=== PATIENT | female | born 1980 | race Hispanic/Latino ===

== ENCOUNTER 2017-03-28 16:11 | Observation (INO) | payer MEDICAID ==
[2017-03-28 16:24] VITALS: BP 141/70; PULSE 107; RESP 20; TEMP 97.8; O2SAT 98
--- NOTE | 2017-03-28 16:33 | ED PDOC ---
HPI: Psych/Substance Abuse Time Seen by Provider: 03/28/17 16:25 Chief Complaint (Nursing): Alcohol Ingestion History Per: Other (Brought by HPD after pt admitted to ETOH ingestion prior to picking up her children at school. Denies drugs or opioids. denies SI/HI) History/Exam Limitations: intoxication Onset/Duration Of Symptoms: Unknown Current Symptoms Are (Timing): Still Present Modifying Factor(s): Alcohol Severity: Moderate Associated Symptoms: denies: Suicidal Thoughts Involuntary Hold By: Local Law Enforcement Past Medical History Vital Signs: Last Vital Signs Temp 97.8 F 03/28/17 16:17 Pulse 107 H 03/28/17 16:17 Resp 20 03/28/17 16:17 BP 141/70 03/28/17 16:17 Pulse Ox 98 03/28/17 16:17 - Medical History PMH: No Chronic Diseases - Family History Family History: States: Unknown Family Hx - Allergies Allergies/Adverse Reactions: Allergies Allergy/AdvReac Type Severity Reaction Status Date / Time No Known Allergies Allergy Verified 03/28/17 16:16 Review of Systems Cardiovascular: Negative for: Chest Pain Respiratory: Negative for: Shortness of Breath Gastrointestinal: Negative for: Abdominal Pain Psych: Negative for: Suicidal ideation Physical Exam - Physical Exam Appears: Positive for: Non-toxic, No Acute Distress Skin: Positive for: Normal Color, Warm, DRY Eye Exam: Positive for: EOMI, PERRL Cardiovascular/Chest: Positive for: Regular Rate, Rhythm Respiratory: Positive for: CNT, Normal Breath Sounds Gastrointestinal/Abdominal: Positive for: Soft. Negative for: Tenderness Back: Positive for: Normal Inspection Extremity: Positive for: Normal ROM Neurologic/Psych: Negative for: Motor/Sensory Deficits (Awake answering questions, slurred speech) - Laboratory Results Result Diagrams: 03/28/17 16:42 - ECG O2 Sat by Pulse Oximetry: 98 Disposition - Clinical Impression Clinical Impression: Alcohol abuse - Patient ED Disposition Is Patient to be Admitted: Transfer of Care - Disposition Disposition: Transfer of Care Disposition Time: 16:56 Condition: FAIR Patient Signed Over To: Lucia Liomn
[2017-03-28 16:52] LABS: BASO # 0.1 K/uL (0.0-0.2); BASO % 0.8 % (0.0-2.0); EOS # 0.2 K/uL (0.0-0.7); EOS % 2.2 % (0.0-4.0); HEMATOCRIT 36.2 % (34.0-47.0); LYMPH # 2.6 K/uL (1.0-4.3); LYMPH % 35.7 % (20.0-40.0); MEAN CELL VOLUME 90.4 fl (81.0-99.0); MEAN CORPUSCULAR HEMOGLOBIN 29.7 pg (27.0-31.0); MEAN CORPUSCULAR HGB CONC 32.8 g/dL (33.0-37.0); MEAN PLATELET VOLUME 6.9 fl (7.2-11.7); MONO # 0.4 K/uL (0.0-0.8); MONO % 5.7 % (0.0-10.0); NEUT # 4.1 K/uL (1.8-7.0); NEUT % 55.6 % (50.0-75.0); NRBC % 0.1 % (0.0-0.0); WHITE BLOOD COUNT 7.3 K/uL (4.8-10.8)
--- NOTE | 2017-03-28 17:07 | ED PDOC ---
- Laboratory Results Result Diagrams: 03/28/17 16:42 03/28/17 16:42 - ECG O2 Sat by Pulse Oximetry: 98 Medical Decision Making Medical Decision Makin:00 Patient is signed out to me by Haider Laughlin MD pending psychiatric and medical evaluation, clinical sobriety, labs, and urine. Crisis will evaluate. 17:43 Patient's alcohol is .333. Patient will be placed in ED observation pending clinical sobriety. See ED obs note for further updates. Scribe Attestation: Documented by Maddie Mckay, acting as a scribe for Lucia Limon MD. Provider Scribe Attestation: All medical record entries made by the Scribe were at my direction and personally dictated by me. I have reviewed the chart and agree that the record accurately reflects my personal performance of the history, physical exam, medical decision making, and the department course for this patient. I have also personally directed, reviewed, and agree with the discharge instructions and disposition. Disposition - Clinical Impression Clinical Impression: Alcohol abuse with intoxication, Adjustment disorder, Alcohol-induced mood disorder - POA Present On Arrival: None - Disposition Disposition: Transfer of Care Disposition Time: 19:00 Condition: STABLE Patient Signed Over To: Ludwin Cruz Handoff Comments: pending sobriety, crisis eval ED OBSERVATION Date of observation admission: 03/28/17 Time of observation admission: 17:43 - Observation admission statement Patient is being placed in observation because:: Need for continuous monitoring. - Goals of Observation Goals of observation are:: Pending clinical sobriety. - Progress Note Progress Note: 03/28/17 19:00 Patient is signed out to Ludwin Cruz MD pending clinical sobriety, medical and psychiatric clearance, reevaluation, and final disposition.
[2017-03-28 17:10] LABS: ALB/GLOB RATIO 1.4 (1.0-2.1); ALKALINE PHOSPHATASE 67 U/L (38-126); ALT/SGPT 24 U/L (9-52); AST/SGOT 28 U/L (14-36); BILIRUBIN,TOTAL 0.2 mg/dl (0.2-1.3); BLOOD UREA NITROGEN 10 mg/dl (7-17); CALCIUM 8.1 mg/dL (8.4-10.2); CARBON DIOXIDE 24 mmol/L (22-30); CHLORIDE 108 mmol/L (98-107); GFR AFRICAN-AMERICAN > 60; GLUCOSE,RANDOM 92 mg/dL (65-105); POTASSIUM 3.8 MMOL/L (3.6-5.0); SODIUM 147 mmol/l (132-148); TOTAL PROTEIN 7.9 G/DL (6.3-8.2)
[2017-03-28 17:20] LABS: ALCOHOL SERUM 333 mg/dl (0-10)
--- NOTE | 2017-03-28 19:21 | ED PDOC ---
- Laboratory Results Result Diagrams: 03/28/17 16:42 03/28/17 16:42 - ECG O2 Sat by Pulse Oximetry: 98 Medical Decision Making Medical Decision Makin:00 Patient is signed out to me by Lucia Limon MD pending clinical sobriety, medical and psychiatric clearance, reevaluation, and final disposition. 2304: Patient evaluated by crisis and found to be stable for d/c with police. Dx: alcohol intoxication, alcohol induced mood disorder, adjustment disorder stable Scribe Attestation: Documented by Maddie Mckay, acting as a scribe for Ludwin Cruz MD. Provider Scribe Attestation: All medical record entries made by the Scribe were at my direction and personally dictated by me. I have reviewed the chart and agree that the record accurately reflects my personal performance of the history, physical exam, medical decision making, and the department course for this patient. I have also personally directed, reviewed, and agree with the discharge instructions and disposition. Disposition - Clinical Impression Clinical Impression: Alcohol abuse with intoxication, Adjustment disorder, Alcohol-induced mood disorder - POA Present On Arrival: None - Disposition Disposition: Discharged/Transfer to Law Enforcement Disposition Time: 17:40 Condition: STABLE
[2017-03-28 20:52] LABS: RBC URINE 1 /hpf (0-3); URINE BILIRUBIN NEGATIVE (NEGATIVE); URINE BLOOD NEGATIVE (NEGATIVE); URINE COLOR YELLOW (YELLOW); URINE GLUCOSE (UA) NEG (Normal); URINE KETONE NEGATIVE (NEGATIVE); URINE LEUKOCYTE ESTERASE NEG Leu/uL (Negative); URINE PROTEIN NEGATIVE (NEGATIVE); URINE UROBILINOGEN 0.2-1.0 mg/dL (0.2-1.0); WBC URINE 1 /hpf (0-5)
== END 2017-03-28 23:00 | disposition home or self-care (01) ==
LOC: H.ER 16:11 → H.EROBSV 17:43
PROVIDERS: ADMIT Emergency Medicine; ATTEND Emergency Medicine
DX: F10.129 Alcohol abuse with intoxication, unspecified (principal); F10.14 Alcohol abuse with alcohol-induced mood disorder; Y90.8 Blood alcohol level of 240 mg/100 ml or more; F43.20 Adjustment disorder, unspecified

== ENCOUNTER 2017-03-29 11:43 | Inpatient (IN) | payer MEDICAID ==
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
--- NOTE | 2017-03-29 14:05 | RAD ---
HISTORY: psych screen COMPARISON: No prior. TECHNIQUE: Chest PA and lateral FINDINGS: LUNGS: No active pulmonary disease. PLEURA: No significant pleural effusion identified. No pneumothorax apparent. CARDIOVASCULAR: Normal. OSSEOUS STRUCTURES: No significant abnormalities. VISUALIZED UPPER ABDOMEN: Normal. OTHER FINDINGS: None. IMPRESSION: No active disease.
[2017-03-29] MEDS ORDERED: Magnesium Hydroxide Susp 30 ml UD PO PRN (15:26)
[2017-03-29] MEDS ORDERED: DiphenhydrAMINE 50 mg/ml Inj IM PRN (15:26)
[2017-03-29] MEDS ORDERED: Alum-Mag Hydrox-Simethicone Susp (30 mL) PO PRN (15:26)
--- NOTE | 2017-03-29 17:57 | CP.PCM.CON ---
History of Present Illness - History of Present Illness History of Present Illness: 36 yo female with no significant PMH admitted to psyche unit because she told her father she wanted slit her wrist and overdose with Benadryl. Review of Systems - Review of Systems All systems: reviewed and no additional remarkable complaints except (aside from those mentioned above, 12 point system review were negative by me) Past Patient History - Infectious Disease Hx of Infectious Diseases: None - Tetanus Immunizations Tetanus Immunization: Unknown - Past Medical History & Family History Past Medical History?: No Past Family History: Reviewed and not pertinent - Past Social History Smoking Status: Former Smoker Chewing Tobacco Use: No Cigar Use: No Alcohol: > 2 Drinks/Day Drugs: Denies Home Situation {Lives}: With Family - CARDIAC Hx Cardiac Disorders: No Hx Hypertension: No - PULMONARY Hx Tuberculosis: No - NEUROLOGICAL HX Cerebrovascular Accident: No Hx Seizures: No - HEMATOLOGICAL/ONCOLOGICAL Hx Cancer: No Hx Human Immunodeficiency Virus (HIV): No - GENITOURINARY/GYNECOLOGICAL Hx Sexually Transmitted Disorders: No - PSYCHIATRIC Hx Anxiety: Yes - SURGICAL HISTORY Hx Section: Yes (x1) Meds Allergies/Adverse Reactions: Allergies Allergy/AdvReac Type Severity Reaction Status Date / Time No Known Allergies Allergy Verified 03/28/17 16:16 - Medications Medications: Current Medications Acetaminophen (Tylenol 325mg Tab) 650 mg PO Q4 PRN PRN Reason: Pain, moderate (4-7) Al Hydrox/Mg Hydrox/Simethicone (Maalox Plus 30 Ml) 30 ml PO Q4 PRN PRN Reason: Dyspepsia Diphenhydramine HCl (Benadryl) 50 mg IM Q6 PRN PRN Reason: Extrapyramidal S/S Unable PO Diphenhydramine HCl (Benadryl) 50 mg PO Q6 PRN PRN Reason: Extrapyramidal Symptoms Folic Acid (Folic Acid) 1 mg PO DAILY NOA Haloperidol (Haldol) 5 mg PO Q4 PRN PRN Reason: Agitation Haloperidol Lactate (Haldol) 5 mg IM Q4 PRN PRN Reason: Agitation, Unable to Take PO Lorazepam (Ativan) 2 mg IM Q4 PRN PRN Reason: Anxiety/Agitation,Unable PO Lorazepam (Ativan) 2 mg PO Q4 PRN PRN Reason: Anxiety/Agitation Lorazepam (Ativan) 1 mg PO TID [facility] Last Admin: 03/29/17 17:34 Dose: 1 mg Magnesium Hydroxide (Milk Of Magnesia) 30 ml PO HS PRN PRN Reason: Constipation Multivitamins/Minerals (Therapeutic-M Tab) 1 tab PO DAILY NAO Thiamine HCl (Vitamin B1 Tab) 100 mg PO DAILY NOA Physical Exam - Constitutional Appears: No Acute Distress - Head Exam Head Exam: ATRAUMATIC - Eye Exam Eye Exam: absent: Scleral icterus - ENT Exam ENT Exam: Mucous Membranes Moist - Neck Exam Neck exam: Negative for: Meningismus - Respiratory Exam Respiratory Exam: absent: Rhonchi, Wheezes, Respiratory Distress - Cardiovascular Exam Cardiovascular Exam: REGULAR RHYTHM, +S1, +S2 - GI/Abdominal Exam GI & Abdominal Exam: Soft. absent: Tenderness - Rectal Exam Rectal Exam: Deferred - Extremities Exam Extremities exam: Negative for: pedal edema - Neurological Exam Neurological exam: Alert, Oriented x3 - Psychiatric Exam Psychiatric exam: Normal Affect - Skin Skin Exam: Dry, Intact Results - Vital Signs Recent Vital Signs: Last Vital Signs Temp 98 F 03/29/17 11:47 Pulse 94 H 03/29/17 13:15 Resp 16 03/29/17 13:15 BP 118/86 03/29/17 13:15 Pulse Ox 99 03/29/17 13:15 - Labs Labs: Laboratory Results - last 24 hr 03/29/17 13:20 Urine Opiates Screen Negative Urine Methadone Screen Negative Ur Barbiturates Screen Negative Ur Phencyclidine Scrn Negative Ur Amphetamines Screen Negative U Benzodiazepines Scrn Negative U Oth Cocaine Metabols Negative U Cannabinoids Screen Negative Assessment & Plan (1) Suicidal ideation Status: Acute Comment: psyche is managing
[2017-03-30 07:57] LABS: T4 8.01 ug/dl (5.5-11.0)
[2017-03-30] MEDS: Multivitamin With Minerals Tab PO SCH ×2 (09:19→09:20)
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
--- NOTE | 2017-03-30 19:26 | CARD ---
APPROVED REPORT EKG Measurement Heart [id number] <Conclusion> Normal sinus rhythm Normal ECG
[2017-03-31] MEDS: Multivitamin With Minerals Tab PO SCH (09:30)
[2017-04-01] MEDS: Multivitamin With Minerals Tab PO SCH (09:13)
[2017-04-01] MEDS: Hydrophor Oint TOP SCH ×3 (10:01→17:52)
--- NOTE | 2017-04-01 10:12 | PCM.PYCHPN ---
Psychiatric Progress Note - Psychiatric Progress Note Patient seen today, length of contact: late note for [id number] Patient Chief Complaint: feeling depressed sad, recent relapse. some changes in sleep appetite fair. denies current s/s withdrawal. Problems Identified/Issues Discussed: alteration in mood alteration in coping substance use:etoh Medical Problems: per chart Diagnostic Results: per psychiatry per medicine per nursing per neonatal social worker DSM 5 Symptoms Update: mood, coping , sadness, anhedonia Medication Change: No Medical Record Reviewed: Yes Mental Status Examination - Cognitive Function Orientation: Person, Place, Situation, Time Attention: WNL Concentration: WNL Association: WNL Fund of Knowledge: [facility] Decription of patient's judgement and insights: impaired - Mood Mood: Depressed, Anxious - Affect Affect: Constricted, Depressed - Formal Thought Process Formal Thought Process: No Impairment - Homicidal Ideation Homicidal Ideation: No Goal/Treatment Plan - Goal/Treatment Plan Need for Continued Stay: Severe depression anxiety, Discharge may exacerbated symptoms Progress Toward Problem(s) and Goals/Treatment Plan: inpt admission adjust meds per status vital signs per protocol and per status visual observation per protocol and per status discharge planning progress Estimated Date of D/C: 04/04/17 - Smoking Cessation Smoking Cessation Initiated: No Reason for not providing: deferred
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
[2017-04-02] MEDS: Multivitamin With Minerals Tab PO SCH (08:44)
[2017-04-02] MEDS: Hydrophor Oint TOP SCH ×3 (09:56→16:57)
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
[2017-04-03] MEDS: Multivitamin With Minerals Tab PO SCH (09:45)
[2017-04-03] MEDS: Hydrophor Oint TOP SCH ×3 (09:45→18:09)
--- NOTE | 2017-04-03 13:02 | PCM.PYCHPN ---
Psychiatric Progress Note - Psychiatric Progress Note Patient seen today, length of contact: discussed with team Patient Chief Complaint: i am so anxious Problems Identified/Issues Discussed: pt less irritable today. she is stating she is having a lot of anxiety. she reports seroquel is helping her sleep. pt somewhat intrusive and with poor interpersonal boundaries with male peer who left today. Medication Change: No Medical Record Reviewed: Yes Mental Status Examination - Cognitive Function Orientation: Person, Place, Situation, Time Memory: Intact Attention: WNL Concentration: WNL Association: WN Fund of Knowledge: [facility] Decription of patient's judgement and insights: fair - Mood Mood: Depressed, Anxious - Affect Affect: Constricted, Depressed - Speech Speech: Loud - Formal Thought Process Formal Thought Process: No Impairment Psychotic Thoughts and Behaviors: denies a/v hallucinations - Suicidal Ideation Suicidal Ideation: No - Homicidal Ideation Homicidal Ideation: No Goal/Treatment Plan - Goal/Treatment Plan Need for Continued Stay: Severe depression anxiety, Discharge may exacerbated symptoms Progress Toward Problem(s) and Goals/Treatment Plan: alcohol dependence major depression moderate, recurrent anxiety will continue with zoloft and seroquel lower ativan tomorrow and monitor for withdrawal working with dcpp to help refer pt to alcohol treatment Estimated Date of D/C: 04/06/17
[2017-04-04] MEDS: Hydrophor Oint TOP SCH ×3 (09:00→17:38)
[2017-04-04] MEDS: Multivitamin With Minerals Tab PO SCH (09:36)
--- NOTE | 2017-04-04 09:41 | PCM.PYCHPN ---
Psychiatric Progress Note - Psychiatric Progress Note Patient seen today, length of contact: discussed with team Patient Chief Complaint: i need something for anxiety Problems Identified/Issues Discussed: pt with epidodes of irritability. she mostly is c/o anxiety. she indicates she understands she has to come off benzodiazapine meds to get rehab treatment when with this creative writer, but later she complains loudly in the milieu that the team is not giving her what she needs. she is picking and choosing places she wants to be referred for inpatient treatment. she reports she is still sleeping well with the seroquel. she is agreeing to start vistaril for her anxiety Medication Change: Yes (lower ativan, start vistaril) Medical Record Reviewed: Yes Mental Status Examination - Cognitive Function Orientation: Person, Place, Situation, Time Memory: Intact Attention: WNL Concentration: WNL Association: WNL Fund of Knowledge: [facility] Decription of patient's judgement and insights: fair - Mood Mood: Depressed, Anxious - Affect Affect: Constricted, Depressed - Speech Speech: Loud - Formal Thought Process Formal Thought Process: No Impairment Psychotic Thoughts and Behaviors: denies a/v hallucinations - Suicidal Ideation Suicidal Ideation: No - Homicidal Ideation Homicidal Ideation: No Goal/Treatment Plan - Goal/Treatment Plan Need for Continued Stay: Severe depression anxiety, Discharge may exacerbated symptoms Progress Toward Problem(s) and Goals/Treatment Plan: alcohol dependence major depression moderate, recurrent anxiety will continue with zoloft and seroquel have lowered ativan vistril prn for anxiety working with dcpp to help refer pt to alcohol treatment Estimated Date of D/C: 04/06/17
[2017-04-05] MEDS: Hydrophor Oint TOP SCH ×3 (08:14→17:41)
[2017-04-05] MEDS: Multivitamin With Minerals Tab PO SCH (08:14)
--- NOTE | 2017-04-05 14:19 | PCM.PYCHPN ---
Psychiatric Progress Note - Psychiatric Progress Note Patient seen today, length of contact: discussed with team Patient Chief Complaint: i didn't sleep Problems Identified/Issues Discussed: pt still c./o feeling anxious. pt intrusive with peers. she reports poor sleep last night. no withdrawal symptoms. allowing referral to inpt rehabs. Medication Change: No ( dc ativan after last dose today) Medical Record Reviewed: Yes Mental Status Examination - Cognitive Function Orientation: Person, Place, Situation, Time Memory: Intact Attention: WNL Concentration: WNL Association: WNL Fund of Knowledge: [facility] Decription of patient's judgement and insights: fair - Mood Mood: Depressed, Anxious - Affect Affect: Constricted, Depressed - Speech Speech: Loud - Formal Thought Process Formal Thought Process: No Impairment Psychotic Thoughts and Behaviors: denies a/v hallucinations - Suicidal Ideation Suicidal Ideation: No - Homicidal Ideation Homicidal Ideation: No Goal/Treatment Plan - Goal/Treatment Plan Need for Continued Stay: Severe depression anxiety, Discharge may exacerbated symptoms Progress Toward Problem(s) and Goals/Treatment Plan: alcohol dependence major depression moderate, recurrent anxiety will continue with zoloft and seroquel- increase seroquel to 100mg hs for mood and anxiety dc standing ativan after todays last dose vistril prn for anxiety working with dcpp to help refer pt to alcohol treatment Estimated Date of D/C: 04/06/17
[2017-04-06] MEDS: Multivitamin With Minerals Tab PO SCH (09:04)
[2017-04-06] MEDS: Hydrophor Oint TOP SCH ×3 (09:04→17:21)
--- NOTE | 2017-04-06 12:42 | PCM.PYCHPN ---
Psychiatric Progress Note - Psychiatric Progress Note Patient seen today, length of contact: in treatment team Patient Chief Complaint: you aren't helping me...i've never seen a doctor like you Problems Identified/Issues Discussed: pt c/o having a panic attack today. per rn, came to nursing stating asking for ativan and seeking immediate help. pt becomes loud and angry when asked to wait by RN. pt followed this insurance underwriter sales down the ramos as he walked to sw office. this author tried to appear unphased by the c/o panic attack and not feed into the anxiety, reminding pt of short duration of panic and that ativan was not an appropriate treatment. pt loudly expressing anger at this doctor, who had discussed many times with pt need to stop ativan and how it is not compatable with pt going to treatment for her alcohol dependence. pt was also started on zoloft, neurontin, seroquel and prn vistaril. regarding the appropriateness of still receiving ativan: pt states "going to rehab isn't going to happen for a few weeks anyway" prior to team, pt observed in day area encouraging other patient to complain about her treatment here. in treatment team, when confronted with these behaviors pt accuses this insurance underwriter sales of lying. pt also states she never asked to take extra ativan or prn ativan. pt then yelled at this insurance underwriter sales stating that "you don't even care that i haven't seen my kids in 8 days...you don't even want to help me." in treatment team, pt c/o that social services specialist is not helping her, that she and her family are the ones finding the rehab referrals. this insurance underwriter sales reiterated that this hospital is a voluntary program and did offer to discharge the pt home if she did not feel she was being helped by this program or if the program was making her worse. reiterated that the pt's treatment did not necessarily mean that the pt would get medications on demand, nor would she be prescribed inappropriate or unsafe medications. pt has been attending groups and was encouraged to try and use coping skills. in treatment team, pt was expressing thankfulness to the art therapist who "i' ve seen more than all of you..and she actually tries to help me" pt demanding to speak to "the highest authority' and make "a lot of noise" Medication Change: No ( pt may benefit from more seroquel, but unable to discuss with pt) Medical Record Reviewed: Yes Mental Status Examination - Cognitive Function Orientation: Person, Place, Situation, Time Memory: Intact Attention: WNL Concentration: WNL Association: WNL Fund of Knowledge: WNL Decription of patient's judgement and insights: fair insight - Mood Mood: Depressed, Anxious, Other (angry) - Affect Affect: Constricted, Depressed - Speech Speech: Loud - Formal Thought Process Formal Thought Process: No Impairment Psychotic Thoughts and Behaviors: denies a/v hallucinations - Suicidal Ideation Suicidal Ideation: No - Homicidal Ideation Homicidal Ideation: No Goal/Treatment Plan - Goal/Treatment Plan Need for Continued Stay: Severe depression anxiety, Discharge may exacerbated symptoms Progress Toward Problem(s) and Goals/Treatment Plan: alcohol dependence major depression moderate, recurrent anxiety will continue with zoloft, neurotin and seroquel- have increased seroquel to 100mg hs for mood and anxiety- may benefit from a daytime dose. all po ativan discontinued vistril prn for anxiety dcpp involved- pt states "i haven't met with anyone and don't know what's going on with my case" Estimated Date of D/C: 04/10/17
[2017-04-07] MEDS: Multivitamin With Minerals Tab PO SCH (09:07)
[2017-04-07] MEDS: Hydrophor Oint TOP SCH ×3 (09:12→17:41)
--- NOTE | 2017-04-07 12:17 | PCM.PYCHPN ---
Psychiatric Progress Note - Psychiatric Progress Note Patient seen today, length of contact: Patient evaluated, case discussed with staff, chart reviewed Patient Chief Complaint: "I put myself here" Problems Identified/Issues Discussed: Patient discussed her children and how she is very stressed not being with them. She states that she made "one stupid mistake". She said numerous times that she has great coping skills, but just needs a time out right now. She is agreeable to inpatient rehab because she wants to be with her children again. She had various complaints about being on an inpatient unit. She continues to report feeling very anxious. We discussed increasing the Seroquel and she was agreeable. Medication Change: Yes (Increase Seroquel to 150 mg PO HS) Medical Record Reviewed: Yes Mental Status Examination - Cognitive Function Orientation: Person, Place, Situation, Time Memory: Intact Attention: WNL Concentration: WNL Association: WNL Fund of Knowledge: [facility] Decription of patient's judgement and insights: Fair I/J - Mood Mood: Depressed, Anxious, Other (Angry) - Affect Affect: Other (Irritable/ Labile) - Speech Speech: Loud - Formal Thought Process Formal Thought Process: No Impairment Psychotic Thoughts and Behaviors: NO AH/VH/paranoia - Suicidal Ideation Suicidal Ideation: No - Homicidal Ideation Homicidal Ideation: No Goal/Treatment Plan - Goal/Treatment Plan Need for Continued Stay: Severe depression anxiety, Discharge may exacerbated symptoms Progress Toward Problem(s) and Goals/Treatment Plan: Alcohol dependence Major depression moderate, recurrent Anxiety Continue with zoloft, neurotin Increase seroquel to 150 mg PO HS PO ativan discontinued Vistril prn for anxiety Dcpp case opened Individual and group therapy Estimated Date of D/C: 04/11/17
[2017-04-07] MEDS ORDERED: POLYETHYLENE GLYCOL 3350 17 GM/Dose PACKET PO STA (20:46)
[2017-04-08] MEDS: Multivitamin With Minerals Tab PO SCH (09:10)
[2017-04-08] MEDS: Hydrophor Oint TOP SCH ×3 (09:13→18:52)
--- NOTE | 2017-04-08 13:53 | PCM.PYCHPN ---
Psychiatric Progress Note - Psychiatric Progress Note Patient seen today, length of contact: Patient evaluated, case discussed with staff, chart reviewed Patient Chief Complaint: "I'm facing my problems" Problems Identified/Issues Discussed: Patient discussed her social stressors. She continues to minimize her alcohol abuse. She reports her mood as anxious. She is concerned that the dosage of Seroquel is too late in the day, so we discussed changing the time. No adverse effects reported. Medication Change: Yes (Change timing of seroquel) Medical Record Reviewed: Yes Mental Status Examination - Cognitive Function Orientation: Person, Place, Situation, Time Memory: Intact Attention: WNL Concentration: WNL Association: [facility] Fund of Knowledge: [facility] Decription of patient's judgement and insights: Fair I/J - Mood Mood: Depressed, Anxious - Affect Affect: Broad - Speech Speech: Appropriate - Formal Thought Process Formal Thought Process: No Impairment Psychotic Thoughts and Behaviors: NO AH/VH/paranoia - Suicidal Ideation Suicidal Ideation: No - Homicidal Ideation Homicidal Ideation: No Goal/Treatment Plan - Goal/Treatment Plan Need for Continued Stay: Severe depression anxiety, Discharge may exacerbated symptoms Progress Toward Problem(s) and Goals/Treatment Plan: Alcohol dependence Major depression moderate, recurrent Anxiety Continue with zoloft, neurotin Seroquel 150 mg PO @1700 PO ativan discontinued Vistril prn for anxiety Dcpp case opened Individual and group therapy Estimated Date of D/C: 04/11/17
[2017-04-08 17:57] VITALS: O2SAT 18
[2017-04-09] MEDS: Multivitamin With Minerals Tab PO SCH (08:27)
[2017-04-09] MEDS: Hydrophor Oint TOP SCH ×3 (08:27→17:30)
--- NOTE | 2017-04-09 12:49 | PCM.PYCHPN ---
Psychiatric Progress Note - Psychiatric Progress Note Patient seen today, length of contact: with the treatment team Patient Chief Complaint: i want to leave here by sunday Problems Identified/Issues Discussed: pt c/o feeling anxious. is less irritable. she is agreeing to some medication changes to help address her anxiety. she continues to minimize her problematic use of alcohol. and becomes defensive when attempts made to discuss going to AA meetings. she reports feeling overwhelmed with her legal stressors and not knowing how her children are doing. Medication Change: Yes (split seroquel, increase zoloft) Medical Record Reviewed: Yes Mental Status Examination - Cognitive Function Orientation: Person, Place, Situation, Time Memory: Intact Attention: WNL Concentration: WNL Association: WN Fund of Knowledge: [facility] Decription of patient's judgement and insights: fair - Mood Mood: Depressed, Anxious - Affect Affect: Broad - Speech Speech: Appropriate - Formal Thought Process Formal Thought Process: No Impairment - Suicidal Ideation Suicidal Ideation: No - Homicidal Ideation Homicidal Ideation: No Goal/Treatment Plan - Goal/Treatment Plan Need for Continued Stay: Severe depression anxiety, Discharge may exacerbated symptoms Progress Toward Problem(s) and Goals/Treatment Plan: alcohol dependence major depression moderate, recurrent anxiety will continue with zoloft, neurotin and seroquel- have discussed changes with pt - will split seroquel to 50/50/100 and will increase zoloft in am. pt asking for standing vistaril, but agrees to keep prn while undergoing other medication changes vistril prn for anxiety dcpp involved-sw to try and call for updates Estimated Date of D/C: 04/11/17
[2017-04-10] MEDS: Hydrophor Oint TOP SCH ×2 (08:38→13:00)
[2017-04-10] MEDS: Multivitamin With Minerals Tab PO SCH (08:39)
--- NOTE | 2017-04-10 13:29 | PCM.PYCHPN ---
Psychiatric Progress Note - Psychiatric Progress Note Patient seen today, length of contact: with the treatment team Patient Chief Complaint: i wish i could stay in this bubble, but i should leave Problems Identified/Issues Discussed: pt getting frustrated with not being able to talk to her children. causing seen in the day area after receiving bad news. expressing anger towards staff here. she feels she needs to be home to take care of her issues and her family is arranging for pt to go to see friends until her court date. she denies medication side effects. Medication Change: No ( ) Medical Record Reviewed: Yes Mental Status Examination - Cognitive Function Orientation: Person, Place, Situation, Time Memory: Intact Attention: WNL Concentration: WNL Association: WNL Fund of Knowledge: [facility] Decription of patient's judgement and insights: fair - Mood Mood: Anxious - Affect Affect: Broad - Speech Speech: Appropriate - Formal Thought Process Formal Thought Process: No Impairment Psychotic Thoughts and Behaviors: no a/v hallucinations. no delusions - Suicidal Ideation Suicidal Ideation: No - Homicidal Ideation Homicidal Ideation: No Goal/Treatment Plan - Goal/Treatment Plan Need for Continued Stay: Severe depression anxiety, Discharge may exacerbated symptoms Progress Toward Problem(s) and Goals/Treatment Plan: alcohol dependence major depression moderate, recurrent anxiety will continue with current medications discharge tomorrow- will e-prescribed meds to [facility] today [facility] with [facility] referred to inpt rehabs Estimated Date of D/C: 04/11/17
--- NOTE | 2017-04-11 08:38 | PCM.PYCHDC ---
Mental Status Examination - Mental Status Examination Orientation: Person, Place, Situation, Time Memory: Intact Mood: Neutral Affect: Broad Speech: Appropriate Attention: WNL Concentration: WNL Association: WNL Fund of Knowledge: WNL Formal Thought Process: No Impairment Description of patient's judgement and insight: Fair I/J Psychotic Thoughts and Behaviors: NO AH/VH/paranoia Suicidal Ideation: No Current Homicidal Ideation?: No Discharge Summary - Discharge Note Reason for Hospitalization: As per initial HPI note: 36 yo female, single mother of 4 (was with her 3 children under 4yo in [place]) pt brought to ER after driving to pharmacy picking tech daughter at school while intoxicated. pt arrested. dcpp took children and placed in father's custody. pt seen in er and reported feeling depressed, anxious, overwhelmed with her situation and expressing suicidal thoughts. she has no plan and no intent to harm self. she states she is so stressed with raising her children that she rarely eats or sleeps. she reports constant panic and anxiety. she states she was sober around 5 years after she was [facility] when with her child. reports she broke up with her bf and father of the 3 youngest children last july and has started drinking since. states she would go to bar when father had custody of the children. feels drinking has come out of control and she was drinking while kids in school in order to relieve a hang over from the night before. pt wants to get treatment for her alcohol dependence. she wants team to call her father to help with treatment. pt wants to work with dcpp and wants to work to get custody of children. pt denies any manic or psychotic symptoms. Psychiatric History (includes Medical, Family, Personal Hx): history of inpt treatment for alcohol dependence 4 years ago Consultations:: List each consultation separately and include: 1. Reason for request. 2. Findings. 3. Follow-up Consultations: Medicine consult Summary of Hospital Course include:: 1. Description of specific treatment plan utilized for patients during their course of treatmen. 2. Summarize the time- course for resolution of acute symptoms and/or regressed behaviors. 3. Describe issues identified and worked on during hospitalization. 4. Describe medication utilized. 5. Describe medical problems identified and treated. 6. Reassessment of suicide risk Summary of Hospital Course: Patient was admitted to the psychiatry unit. Individual and group therapy were provided. The patient was stabilized on Seroquel 50 mg PO Daily/ 50 mg @1300/ 100 mg HS, Zoloft 75 mg PO Daily, Vistaril 50 mg PO Q8hr PRN Anxiety, Gabapentin 800 mg PO TID. Motivational therapy was provided and counseling on alcohol cessation. DCP&P involved due to concerns about endangerment of her children. She is now psychiatrically stable for discharge, does not reports depression and is not an acute danger to self or others. - Final Diagnosis (DSM 5) Condition upon Discharge: FAIR DSM 5: Alcohol Dependence, Major Depression Disorder, Anxiety Disorder unspecified Disposition: HOME/ ROUTINE Follow-up Treatment Plan: Continue Seroquel 50 mg PO Daily/ 50 mg @1300/ 100 mg HS, Zoloft 75 mg PO Daily , Vistaril 50 mg PO Q8hr PRN Anxiety, Gabapentin 800 mg PO TID. Dcpp case opened Individual and group therapy Discharge today Prescriptions/Medication Reconciliation: Folic Acid 1 mg PO DAILY #30 tab Gabapentin [Neurontin] 800 mg PO TID #90 cap hydrOXYzine Pamoate [Vistaril] 50 mg PO Q8 PRN #45 cap PRN Reason: Anxiety Multimineral/Multivitamin [Therapeutic-M Tab] 1 tab PO DAILY #30 tab QUEtiapine [Seroquel] 100 mg PO HS #30 tab QUEtiapine [SEROquel] 50 mg PO DAILY #30 tab QUEtiapine [SEROquel] 50 mg PO 1300 #30 tab Sertraline [Zoloft] 75 mg PO DAILY #90 tab Thiamine [Vitamin B1 Tab] 100 mg PO DAILY #30 tab - Smoking Cessation Smoking Cessation Medication prescribed: No Reason for not providing: Not indicated - Antipsychotic Medications Pt discharged on 2 or more routine antipsychotic medications: No
[2017-04-11] MEDS: Multivitamin With Minerals Tab PO SCH (08:52)
[2017-04-11] MEDS: Hydrophor Oint TOP SCH (08:53)
[2017-04-11 09:07] VITALS: BP 106/81; PULSE 90; RESP 20; TEMP 97.7
== END 2017-04-11 10:56 | disposition home or self-care (01) | DRG 430 ==
LOC: H.ER 11:43 → H.ERHOLD 13:14 → H.PSYCH 15:10
PROVIDERS: ADMIT Psychiatry & Neurology Psychiatry; ATTEND Psychiatry & Neurology Psychiatry
PROC: GZ51ZZZ Individual Psychotherapy, Behavioral (ICD-10-PCS; 2017-04-01)
PROC: GZHZZZZ Group Psychotherapy (ICD-10-PCS; principal; 2017-04-02)
DX: F33.1 Major depressive disorder, recurrent, moderate (principal); R45.851 Suicidal ideations; F41.0 Panic disorder [episodic paroxysmal anxiety]; F10.20 Alcohol dependence, uncomplicated; Z87.891 Personal history of nicotine dependence